=== PATIENT | female | born 1990 | race Hispanic/Latino ===

== ENCOUNTER 2018-05-08 20:45 | Emergency (ER) | payer SELFPAY ==
[2018-05-08 21:40] LABS: Urine Blood NEGATIVE (NEG); Urine Glucose NEGATIVE (NEG); Urine Protein NEGATIVE (NEG); Urine pH 7.5 (5.0-7.0)
[2018-05-08 21:41] LABS: Absolute Lymphocytes (CBC) 1.8 K/uL (0.7-4.9); Absolute Monocytes 0.8 K/uL (0.1-1.3); Absolute Neutrophil 14.4 K/uL (1.8-8.0); Basophils % 0.2 % (0-1.3); Eosinophils % 0.4 % (0-4.4); Hematocrit 37.1 % (36.0-45.0); Lymphocytes % 10.5 % (15.3-44.8); MCH 31.2 pg (27.0-35.0); MCV 91.9 fL (80-100); MPV 8.3 fL (7.6-11.3); Monocytes % 4.6 % (3.3-12.3); RBC Red Blood Cell Count 4.03 M/uL (3.86-4.86)
[2018-05-08] MEDS ORDERED: KETOROLAC 30 MG/ML INJ ONE (21:49)
[2018-05-08] MEDS ORDERED: ONDANSETRON 4 MG/2 ML VIAL ONE (21:49)
[2018-05-08 22:03] LABS: ALT/SGPT 18 U/L (12-78); AST/SGOT 12 U/L (15-37); Albumin 3.4 g/dL (3.4-5.0); Alkaline Phosphatase 100 U/L (45-117); Amylase Level 42 U/L (25-115); BUN Blood Urea Nitrogen 7 mg/dL (7-18); Bicarbonate 27 mmol/L (21-32); Bilirubin Direct < 0.1 mg/dL (0-0.2); Bilirubin Total 0.4 mg/dL (0.2-1.0); Glucose Level 104 mg/dL (74-106); Lipase 84 U/L (73-393); Potassium 3.2 mmol/L (3.5-5.1); Protein, Total 7.3 g/dL (6.4-8.2); Sodium Level 135 mmol/L (136-145)
[2018-05-09 00:48] LABS: Urine Bacteria <20 /HPF (<20); Urine Culture Reflex Order NOT NEEDED; Urine RBC <5 /HPF (NONE SEEN)
[2018-05-09] MEDS ORDERED: DICYCLOMINE HCL 10 MG CAP ONE (01:20)
[2018-05-09] MEDS ORDERED: CIPROFLOXACIN HCL 500 MG TAB ONE (01:45)
[2018-05-09] MEDS ORDERED: METRONIDAZOLE 500mg IVPB 500 MG/100 ML BAG IV ONE (01:46)
[2018-05-09] MEDS ORDERED: MORPHINE 4 MG/ML SYR ONE (01:46)
--- NOTE | 2018-05-09 01:56 | ER ---
Nurse's Notes [facility] Name: Yaneli Ray Age: 27 yrs Sex: Female : 1990 Arrival Date: 05/08/2018 Time: 20:46 Bed 16 Private MD: Diagnosis: Lower abdominal pain, unspecified Presentation: 05/08 20:49 Presenting complaint: Patient states: that she is having lower abd pain but denies any fc nausea, vomiting or diarrhea. Transition of care: patient was not received from another setting of care. Onset of symptoms was May 08, 2018. Risk Assessment: Do you want to hurt yourself or someone else? Patient reports no desire to harm self or others. Initial Sepsis Screen: Does the patient meet any 2 criteria? HR > 90 bpm. Yes Does the patient have a suspected source of infection? No. Patient's initial sepsis screen is negative. Care prior to arrival: Medication(s) given: Nyquil at 2000. 20:49 Method Of Arrival: Ambulatory 20:49 Acuity: JOSHUA 3 Triage Assessment: 20:51 General: Appears comfortable, Behavior is calm, cooperative, appropriate for age. Pain: fc Complains of pain in right lower quadrant and left lower quadrant Pain currently is 10 out of 10 on a pain scale. Quality of pain is described as aching, crampy, Pain began today Is continuous. EENT: No deficits noted. Neuro: Level of Consciousness is awake, alert, obeys commands, Oriented to person, place, time, situation. Cardiovascular: No deficits noted. Respiratory: No deficits noted. GI: Reports lower abdominal pain. : No deficits noted. Derm: Skin is pink, warm \T\ dry. Musculoskeletal: Circulation, motion, and sensation intact. Capillary refill < 3 seconds, Range of motion: intact in all extremities. 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 - Social history:: Smoking status: Patient uses tobacco products, smokes one-half pack cigarettes per day. - Ebola Screening: : Patient negative for fever greater than or equal to 101.5 degrees Fahrenheit, and additional compatible Ebola Virus Disease symptoms Patient denies exposure to infectious person Patient denies travel to an Ebola-affected area in the 21 days before illness onset. Screenin:11 Abuse screen: Denies threats or abuse. Denies injuries from another. Nutritional ao screening: No deficits noted. Tuberculosis screening: No symptoms or risk factors identified. Fall Risk None identified. Assessment: 21:29 General: Appears in no apparent distress. comfortable, Behavior is calm, cooperative, ao appropriate for age. Pain: Complains of pain in abdomen Pain currently is 10 out of 10 on a pain scale. Neuro: Level of Consciousness is awake, alert, obeys commands, Oriented to person, place, time, situation, Appropriate for age Moves all extremities. Speech is normal, Facial symmetry appears normal, Pupils are PERRLA. Cardiovascular: Heart tones S1 S2 Capillary refill < 3 seconds Patient's skin is warm and dry. Respiratory: Airway is patent Respiratory effort is even, unlabored, Respiratory pattern is regular, symmetrical, Breath sounds are clear bilaterally. GI: Abdomen is flat, Bowel sounds present X 4 quads. Abd is soft and non tender Abd is soft. : No signs and/or symptoms were reported regarding the genitourinary system. EENT: No signs and/or symptoms were reported regarding the EENT system. Derm: Skin is intact, Skin is pink, warm \T\ dry. Skin temperature is warm. Musculoskeletal: Circulation, motion, and sensation intact. Range of motion: intact in all extremities. 22:03 Reassessment: Patient appears in no apparent distress at this time. Patient and/or ao family updated on plan of care and expected duration. Pain level reassessed. Patient is alert, oriented x 3, equal unlabored respirations, skin warm/dry/pink. 23:00 Reassessment: Patient appears in no apparent distress at this time. Patient and/or ao family updated on plan of care and expected duration. Pain level reassessed. Patient is alert, oriented x 3, equal unlabored respirations, skin warm/dry/pink. 23:55 Reassessment: Patient appears in no apparent distress at this time. Patient and/or ao family updated on plan of care and expected duration. Pain level reassessed. Patient is alert, oriented x 3, equal unlabored respirations, skin warm/dry/pink. Waiting on Ct results Patient states feeling better. 05/09 00:53 Reassessment: Patient appears in no apparent distress at this time. Patient and/or ao family updated on plan of care and expected duration. Pain level reassessed. Patient is alert, oriented x 3, equal unlabored respirations, skin warm/dry/pink. Waiting on dispo. 01:56 Reassessment: Patient appears in no apparent distress at this time. Patient and/or ao family updated on plan of care and expected duration. Pain level reassessed. Patient is alert, oriented x 3, equal unlabored respirations, skin warm/dry/pink. Patient medicated with morphine. 02:06 Reassessment: Patient to be discharge after Flagyl is complete. ao Vital Signs: 05/08 20:53 BP 122 / 76; Pulse 115; Resp 18; Temp 99.1(O); Pulse Ox 99% on R/A; Weight 68.04 kg fc (R); Height 5 ft. 1 in. (154.94 cm) (R); Pain 10/10; 22:03 BP 109 / 68; Pulse 99; Resp 20; Pulse Ox 100% on R/A; ao 23:00 BP 108 / 66; Pulse 84; Resp 18; Pulse Ox 100% ; ao 23:55 BP 105 / 64; Pulse 87; Resp 16; Pulse Ox 98% on R/A; ao 05/09 00:53 BP 109 / 56; Pulse 84; Resp 16; Pulse Ox 96% ; ao 01:56 BP 116 / 61; Pulse 87; Resp 14; Pulse Ox 98% on R/A; ao 05/08 20:53 Body Mass Index 28.34 (68.04 kg, 154.94 cm) ED Course: 05/08 20:46 Patient arrived in ED. am2 20:51 Triage completed. fc 20:53 Arm band placed on Patient placed in an exam room, on a stretcher. fc 20:57 Ruel Brar PA is PHCP. cp 20:57 Sree Loera MD is Attending Physician. cp 21:18 Rodolfo Fuller, RN is Primary Nurse. ao 22:11 Patient has correct armband on for positive identification. Pulse ox on. NIBP on. ao 23:00 Inserted saline lock: 20 gauge in left antecubital area, using aseptic technique. Blood ao collected. 23:46 CT Abd/Pelvis - W/Contrast: no oral contrast In Process Unspecified. EDMS 05/09 03:00 No provider procedures requiring assistance completed. ao 03:01 IV discontinued, intact, bleeding controlled, No redness/swelling at site. Pressure ao dressing applied. Administered Medications: 05/08 21:52 Drug: TORadol 30 mg Route: IVP; Site: left antecubital; ao 05/09 01:22 Follow up: Response: No adverse reaction ao 05/08 21:52 Drug: Zofran 4 mg Route: IVP; Site: left antecubital; ao 05/09 01:22 Follow up: Response: No adverse reaction ao 01:21 Drug: Bentyl 20 mg Route: PO; ao 02:00 Follow up: Response: No adverse reaction ao 01:52 Drug: metroNIDAZOLE 500 mg Volume: 100 ml; Route: IVPB; Infused Over: 30 mins; Site: ao left antecubital; 05:20 Follow up: IV Status: Completed infusion; IV Intake: 100ml ao 01:52 Drug: morphine 2 mg Route: IVP; Site: left antecubital; ao 03:00 Follow up: Response: No adverse reaction ao 01:53 Drug: Ciprofloxacin 500 mg Route: PO; ao 02:00 Follow up: Response: No adverse reaction ao Intake: 05:20 IV: 100ml; Total: 100ml. ao Outcome: 01:56 Discharge ordered by MD. cp 03:01 Discharged to home ambulatory. ao 03:01 Condition: stable 03:01 Discharge instructions given to patient, Instructed on discharge instructions, follow up and referral plans. Demonstrated understanding of instructions, follow-up care, medications, Prescriptions given X 3. 03:01 Patient left the ED. ao Signatures: Dispatcher [employer] EDMS Christina Larose RN RN fc Page, Corey, PA PA cp Ortiz, Alex, RN RN Dinah Otero am2 Corrections: (The following items were deleted from the chart) 05/08 20:54 20:49 Initial Sepsis Screen: Does the patient meet any 2 criteria? No. Patient's fc initial sepsis screen is negative. Does the patient have a suspected source of infection? No. Patient's initial sepsis screen is negative. fc
--- NOTE | 2018-05-09 01:56 | EDPHYS ---
Physician Documentation [facility] Name: Yaneli Ray Age: 27 yrs Sex: Female : 1990 Arrival Date: 05/08/2018 Time: 20:46 Bed 16 Private MD: ED Physician Sree Loera HPI: 05/08 21:15 This 27 yrs old Female presents to ER via Ambulatory with complaints of cp Abdominal Pain - Lower, Chills. 21:15 The patient presents with abdominal pain in the lower abdomen. cp 21:15 Onset: The symptoms/episode began/occurred today. The symptoms do not radiate. cp Associated signs and symptoms: Pertinent positives: diarrhea 3 days ago, Pertinent negatives: blood in stools, constipation, fever, vomiting. 21:15 The symptoms are described as constant. Modifying factors: the symptoms are aggravated cp by pressure. 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 - Social history:: Smoking status: Patient uses tobacco products, smokes one-half pack cigarettes per day. - Ebola Screening: : Patient negative for fever greater than or equal to 101.5 degrees Fahrenheit, and additional compatible Ebola Virus Disease symptoms Patient denies exposure to infectious person Patient denies travel to an Ebola-affected area in the 21 days before illness onset. ROS: 21:20 Constitutional: Positive for chills, Negative for body aches, fever, poor PO intake. cp 21:20 Eyes: Negative for injury, pain, redness, and discharge. cp 21:20 ENT: Negative for ear pain, sore throat, difficulty swallowing, difficulty handling secretions. 21:20 Cardiovascular: Negative for chest pain, palpitations. 21:20 Respiratory: Negative for cough, shortness of breath, wheezing. 21:20 Abdomen/GI: Positive for abdominal pain, Negative for vomiting, constipation, active diarrhea. 21:20 : Positive for vaginal bleeding, Negative for urinary symptoms. 21:20 Skin: Negative for cellulitis, rash. 21:20 Neuro: Negative for dizziness, headache, weakness. 21:20 All other systems are negative. Exam: 21:25 Constitutional: The patient appears in no acute distress, alert, awake, non-toxic, well cp developed, well nourished, uncomfortable. 21:25 Head/Face: Normocephalic, atraumatic. cp 21:25 Eyes: Periorbital structures: appear normal, Conjunctiva: normal, no exudate, no injection, Sclera: no appreciated abnormality, Lids and lashes: appear normal, bilaterally. 21:25 ENT: External ear(s): are unremarkable, Ear canal(s): are normal, clear, TM's: bulging, is not appreciated, bilaterally, dullness, bilaterally, erythema, is not appreciated, bilaterally, Nose: is normal, Mouth: Lips: moist, Oral mucosa: pink and intact, moist, Posterior pharynx: is normal, airway is patent, no erythema, no exudate, Voice: is normal. 21:25 Neck: ROM/movement: is normal, is supple, without pain, no range of motions limitations, no nuchal rigidity. 21:25 Chest/axilla: Inspection: normal, Palpation: is normal, no crepitus, no tenderness. 21:25 Cardiovascular: Rate: tachycardic, Rhythm: regular. 21:25 Respiratory: the patient does not display signs of respiratory distress, Respirations: normal, no use of accessory muscles, no retractions, no splinting, no tachypnea, labored breathing, is not present, Breath sounds: are clear throughout, no decreased breath sounds, no stridor, no wheezing. 21:25 Abdomen/GI: Inspection: abdomen appears normal, Bowel sounds: active, all quadrants, Palpation: soft, in all quadrants, moderate abdominal tenderness, in the right lower quadrant and left lower quadrant, rebound tenderness, is not appreciated, voluntary guarding, is not appreciated, involuntary guarding, is not appreciated. 21:25 Back: pain, is absent, ROM is normal. 21:25 Skin: cellulitis, is not appreciated, no rash present. Vital Signs: 20:53 BP 122 / 76; Pulse 115; Resp 18; Temp 99.1(O); Pulse Ox 99% on R/A; Weight 68.04 kg fc (R); Height 5 ft. 1 in. (154.94 cm) (R); Pain 10/10; 22:03 BP 109 / 68; Pulse 99; Resp 20; Pulse Ox 100% on R/A; ao 23:00 BP 108 / 66; Pulse 84; Resp 18; Pulse Ox 100% ; ao 23:55 BP 105 / 64; Pulse 87; Resp 16; Pulse Ox 98% on R/A; ao 05/09 00:53 BP 109 / 56; Pulse 84; Resp 16; Pulse Ox 96% ; ao 01:56 BP 116 / 61; Pulse 87; Resp 14; Pulse Ox 98% on R/A; ao 05/08 20:53 Body Mass Index 28.34 (68.04 kg, 154.94 cm) fc MDM: 05/08 20:57 Patient medically screened. cp 22:00 Differential diagnosis: bowel obstruction, diverticulitis, gastritis, non-specific abd cp pain, Peritonitis, Pelvic Inflammatory Disease, Ureterolithiasis, urinary tract infection. 05/09 01:54 Data reviewed: vital signs, nurses notes, lab test result(s), radiologic studies, CT cp scan, and as a result, I will discharge patient. 01:55 Counseling: I had a detailed discussion with the patient and/or guardian regarding: the cp historical points, exam findings, and any diagnostic results supporting the discharge/admit diagnosis, lab results, radiology results, to return to the emergency department if symptoms worsen or persist or if there are any questions or concerns that arise at home. Response to treatment: the patient's symptoms have markedly improved after treatment, VSS. Pain improved. Patient tolerating po fluids, and as a result, I will discharge patient. 05/08 21:11 Order name: Amylase, Serum; Complete Time: 23:10 cp 05/08 21:11 Order name: Basic Metabolic Panel; Complete Time: 23:10 cp 05/09 00:44 Interpretation: Normal except: NA 135; K 3.2; GFR 87; CA 8.4. cp 05/08 21:11 Order name: CBC with Diff; Complete Time: 23:10 cp 05/09 00:44 Interpretation: Normal except: WBC 17.1; TRAVIS% 84.3; LYM% 10.5; NEUT A 14.4. cp 05/08 21:11 Order name: Creatinine for Radiology; Complete Time: 23:10 cp 05/08 21:11 Order name: Hepatic Function; Complete Time: 23:10 cp 05/09 00:44 Interpretation: Normal except: AST 12; GLOB 3.9; A/G 0.9. cp 05/08 21:11 Order name: Lipase; Complete Time: 23:10 cp 05/08 21:11 Order name: Urine Microscopic Only; Complete Time: 01:06 cp 05/09 01:06 Interpretation: Normal except: SQEPI 10-20. cp 05/08 21:12 Order name: Urine Dipstick--Ancillary (enter results) eb 05/08 21:12 Order name: Urine --Ancillary (enter results) eb 05/08 21:13 Order name: Urine Dipstick-Ancillary; Complete Time: 23:10 EDMS 05/09 00:44 Interpretation: Normal except: UPH 7.5. cp 05/08 21:13 Order name: Urine --Ancillary; Complete Time: 23:10 EDMS 05/08 23:10 Order name: CT Abd/Pelvis - W/Contrast: no oral contrast cp 05/08 21:11 Order name: Urine Test (obtain specimen); Complete Time: 21:24 cp 05/08 21:11 Order name: IV Saline Lock; Complete Time: 21:25 cp 05/08 21:11 Order name: Labs collected and sent; Complete Time: 21:25 cp 05/08 21:11 Order name: Urine Dipstick-Ancillary (obtain specimen); Complete Time: 21:24 cp 05/09 01:16 Order name: PO challenge; Complete Time: 01:20 cp Administered Medications: 05/08 21:52 Drug: TORadol 30 mg Route: IVP; Site: left antecubital; ao 05/09 01:22 Follow up: Response: No adverse reaction ao 05/08 21:52 Drug: Zofran 4 mg Route: IVP; Site: left antecubital; ao 05/09 01:22 Follow up: Response: No adverse reaction ao 01:21 Drug: Bentyl 20 mg Route: PO; ao 02:00 Follow up: Response: No adverse reaction ao 01:52 Drug: metroNIDAZOLE 500 mg Volume: 100 ml; Route: IVPB; Infused Over: 30 mins; Site: ao left antecubital; 05:20 Follow up: IV Status: Completed infusion; IV Intake: 100ml ao 01:52 Drug: morphine 2 mg Route: IVP; Site: left antecubital; ao 03:00 Follow up: Response: No adverse reaction ao 01:53 Drug: Ciprofloxacin 500 mg Route: PO; ao 02:00 Follow up: Response: No adverse reaction ao Disposition: 05/09/18 01:56 Discharged to Home. Impression: Lower abdominal pain, unspecified. - Condition is Stable. - Discharge Instructions: Abdominal Pain, Adult. - Prescriptions for Bentyl 20 mg Oral Tablet - take 1 tablet by ORAL route every 6 hours As needed; 30 tablet. Zofran 4 mg Oral Tablet - take 1 tablet by ORAL route every 12 hours As needed; 20 tablet. Cipro 500 mg Oral Tablet - take 1 tablet by ORAL route every 12 hours for 10 days; 20 tablet. Metronidazole 500 mg Oral Tablet - take 1 tablet by ORAL route every 8 hours; 30 tablet. - Medication Reconciliation Form, Thank You Letter, Antibiotic Education, Prescription Opioid Use, Work release form form. - Follow up: Private Physician; When: 1 - 2 days; Reason: Recheck today's complaints. - Problem is new. - Symptoms have improved. Addendum: 05/11/2018 12:40 Co-signature as Attending Physician, Sree Loera MD Available for consultation at p s1 all times. . Signatures: Dispatcher [employer] EDMS Christina Larose RN RN Ruel Martínez PA PA cp Ortiz, Alex, RN RN ao Singer, Phillip, MD MD ps1 Corrections: (The following items were deleted from the chart) 05/09 00:44 00:43 Normal except: NA 135; K 3.2; GFR 87. cp cp 03:01 01:56 05/09/2018 01:56 Discharged to Home. Impression: Lower abdominal pain, ao unspecified. Condition is Stable. Forms are Medication Reconciliation Form, Thank You Letter, Antibiotic Education, Prescription Opioid Use. Follow up: Private Physician; When: 1 - 2 days; Reason: Recheck today's complaints. Problem is new. Symptoms have improved. cp
--- NOTE | 2018-05-09 08:10 | RAD REPORT ---
EXAM DESCRIPTION: CT - Abdomen Pelvis W Contrast - 05/09/2018 5:33 am CLINICAL HISTORY: Abdominal pain/lower abdominal pain. COMPARISON: 2012 TECHNIQUE: Computed axial tomography of the abdomen pelvis was obtained. 100 cc Isovue-300 was admin istered intravenously. Oral contrast was not requested which limits evaluation of bowel. A preliminar y was generated by [employer] and reviewed prior to this dictation All CT scans are performed using dose optimization technique as appropriate and may include automated exposure control or mA/KV adjustment according to patient size. FINDINGS: The liver, spleen, pancreas, adrenal and kidneys appear unremarkable. There is no evidence of diverticulitis. The gallbladder and appendix have been removed. Fluid is present within nondilated small bowel. A tiny umbilical hernia is seen. IMPRESSION: Fluid within nondilated small bowel may indicate an enteritis
[2018-05-09 10:37] VITALS: TEMP 99.1
[2018-05-09 10:43] VITALS: BP 116/61; O2SAT 98
== END 2018-05-09 03:01 | disposition home or self-care (01) ==
LOC: ER 20:45
DX: R10.30 Lower abdominal pain, unspecified (principal); F17.210 Nicotine dependence, cigarettes, uncomplicated
CPT/HCPCS: 36415; 74177; 80048; 80076; 81003; 81015; 81025; 82150; 83690; 85025; 96365; 96366; 96375; 99284; J2405; Q9967

== ENCOUNTER 2020-02-17 04:24 | Inpatient (IN) | payer OTHER ==
[~2020-02-17 04:24] MED LIST: BUTORPHANOL 1 MG/ML INJ IV PRN; CARBOPROST TROME 250 MCG/ML IM PRN; METHYLERGONOVINE 0.2MG/ML AMP IM PRN; OXYTOCIN/LR 20 UNIT/1,000 ML BAG IV SCH; PROMETHAZINE INJ 25 MG/ML AMP IM PRN; Ringers Lactate 1,000 ML IV PRN; Ringers Lactate 1,000 ML IV SCH
[2020-02-17 05:17] LABS: Urine Appearance CLEAR; Urine Bilirubin NEGATIVE (NEG); Urine Blood NEGATIVE (NEG); Urine Color YELLOW; Urine Glucose NEGATIVE (NEG); Urine Protein NEGATIVE (NEG); Urine Specific Gravity 1.015 (1.005-1.030); Urine Urobilinogen 0.2 mg/dL (0.2-1.0); Urine pH 7.5 (5.0-7.0)
[2020-02-17 05:20] LABS: Absolute Lymphocytes (CBC) 3.9 K/uL (0.7-4.9); Basophils % 0.3 % (0-1.3); Hematocrit 31.4 % (36.0-45.0); Lymphocytes % 29.5 % (15.3-44.8); RBC Red Blood Cell Count 3.47 M/uL (3.86-4.86)
[2020-02-17 05:22] LABS: Urine Microscopic Reflex ORDER UMIC
[2020-02-17 05:27] VITALS: BMI 32.5
[2020-02-17 05:45] LABS: Urine Bacteria <20 /HPF (<20); Urine Culture Reflex Order REFLEXED; Urine RBC <5 /HPF (NONE SEEN)
[2020-02-17] MEDS ORDERED: FENTANYL CITR 100 MCG/2 ML ONE (06:42)
[2020-02-17] MEDS ORDERED: BUPIVACAINE 0.25% PF 30 ML VIAL ONE (06:42)
[2020-02-17] MEDS ORDERED: FENTANYL/BUPIVACAINE/NS/PF 200 MCG/100 ML BAG EP ONE (06:43)
--- NOTE | 2020-02-17 07:24 | PREOPHP ---
Date of Admission: 02/17/2020 This is a 29-year-old, 4, para 3, 39 weeks, 1 day. She is Rh positive, immune to Rubella. N egative beta strep screen. Is 4 cm, 80% effaced, vertex, -1 station to 0 station. Rupture of membra kali, clear fluid. Anticipate more rapid progress. Full labor talk given. YAZMIN/EVAN Voice ID: [id number]
[2020-02-17] MEDS ORDERED: INFLUENZA VACCINE (for 3y+) 0.5 ML DOSE IMVAC ONE (08:00)
[2020-02-17] MEDS ORDERED: ACETAMINOPHEN 500 MG TAB PO PRN (09:13)
[2020-02-17] MEDS ORDERED: IBUPROFEN 200 MG TAB PO PRN (09:13)
[2020-02-17] MEDS ORDERED: DOCUSATE NA/SENNA CONC 1 TAB PO PRN (09:13)
[2020-02-17] MEDS ORDERED: BISACODYL 10 MG RECTAL SUPP RECT PRN (09:13)
[2020-02-17] MEDS ORDERED: DIPHENHYDRAMINE 25 MG TAB/CAP PO PRN (09:13)
[2020-02-17] MEDS ORDERED: Oxycodone HCl/Acetaminophen 1 TAB TAB PO PRN (09:13)
--- NOTE | 2020-02-17 09:36 | OP ---
Surgeon: Gianluca Smith MD Summary: This is a 29-year-old, 4, para 3, 39 weeks 1 day. Rupture of membranes, at approxi mately 4 cm. Epidural anesthesia was established. Thereafter, second stage of 20 to 25 minutes. Sp ontaneous vaginal delivery of an estimated 7-pound male infant, Apgars 9 and 10. No episiotomy. No laceration. Patel delivery of the placenta, inspected and noted to be intact and normal. Less than 300 mL blood loss. Rh positive, immune to Rubella. Negative beta strep screen. Tolerated all proc edures well. Final Diagnoses: 1.Term intrauterine . 2.Vaginal delivery. 3.Epidural anesthesia. YAZMIN/EVAN Voice ID: [id number] Report ID: [id number]
[2020-02-17] MEDS ORDERED: IBUPROFEN 600 MG TAB PO PRN (10:00)
[2020-02-17] MEDS ORDERED: OXYTOCIN/LR 20 UNIT/1,000 ML BAG IV SCH (10:00)
[2020-02-17] MEDS: Oxycodone HCl/Acetaminophen 1 TAB TAB PO PRN (19:30)
[2020-02-17 23:09] LABS: RPR (Rapid Plasma Reagin) NON-REACT (NON-REACT)
[2020-02-18] MEDS: Oxycodone HCl/Acetaminophen 1 TAB TAB PO PRN (07:08)
[2020-02-18 07:31] VITALS: BP 119/62; TEMP 97
[2020-02-18] MEDS ORDERED: Tdap (Diph,Pertuss(Acell),Tet Vac) 0.5 ML SYR IMVAC ONE ×2 (08:20→08:29)
[2020-02-18] MEDS ORDERED: INFLUENZA VACCINE (for 3y+) 0.5 ML DOSE IMVAC ONE (08:29)
--- NOTE | 2020-02-18 09:12 | DS ---
This is a 29-year-old 4, para 3, 39 weeks, delivered an estimated 7-pound plus male . Apgars 9 and 9. No episiotomy. No lacerations. Epidural anesthesia. Delivery of the placenta, whi ch was inspected and noted to be intact and normal. Less than 300 mL blood loss. Rh positive, immun e to Rubella. Negative beta strep screen. ; afebrile, ambulating and voiding. Lochia is normal. No post epidural problems. She is scheduled to get her Tdap and flu shot before she leaves the hospital. Request tramadol, we will give her 10 to 15 tablets. She knows this does go through t he breast-milk. Full discussion. Cannon instructions also given. Final Diagnoses: Term intrauterine 39 weeks. Vaginal delivery. Epidural anesthesia. Tda p and flu shots offered. YAZMIN/EVAN Voice ID: [id number] Report ID: [id number]
[2020-02-19 02:25] LABS: HBsAG Nonreactive (Nonreactive)
== END 2020-02-18 10:47 | disposition home or self-care (01) | DRG 807 ==
LOC: 2ND-WC 04:24
PROVIDERS: ADMIT Specialist; ATTEND Specialist
PROC: 10E0XZZ Delivery of Products of Conception, External Approach (ICD-10-PCS; principal; 2020-02-17)
PROC: 10907ZC Drainage of Amniotic Fluid, Therapeutic from Products of Conception, Via Natural or Artificial Opening (ICD-10-PCS; 2020-02-17)
DX: O80 Encounter for full-term uncomplicated delivery (principal); Z37.0 Single live birth; Z3A.39 39 weeks gestation of pregnancy
CPT/HCPCS: 36415; 81003; 81015; 85025; 86592; 86850; 86900; 86901; 87086; 87088; 87340; 90471; 90715; J2210; J2590; J3010; J7120; Q2035

== ENCOUNTER 2021-03-19 07:12 | Inpatient (IN) | payer OTHER ==
[2021-03-19] MEDS ORDERED: METHYLERGONOVINE 0.2MG/ML AMP IM ONE ×2 (07:58→17:15)
[2021-03-19] MEDS ORDERED: LIDOCAINE 1% MPF 30 ML VIAL ONE ×2 (07:58→17:14)
[2021-03-19] MEDS ORDERED: PENICILLIN 5 MU in NA CHLORIDE 0.9% 100 ML IV ONE (08:06)
[2021-03-19] MEDS ORDERED: Ringers Lactate 1,000 ML IV PRN (08:06)
[2021-03-19] MEDS ORDERED: METHYLERGONOVINE 0.2MG/ML AMP IM PRN (08:06)
[2021-03-19] MEDS ORDERED: CARBOPROST TROME 250 MCG/ML IM PRN (08:06)
[2021-03-19 08:38] LABS: Absolute Lymphocytes (CBC) 4.3 K/uL (0.7-4.9); Basophils % 0.4 % (0-1.3); Hematocrit 34.4 % (36.0-45.0); Lymphocytes % 26.7 % (15.3-44.8); MPV 12.8 fL (7.6-11.3); RBC Red Blood Cell Count 3.94 M/uL (3.86-4.86)
[2021-03-19 08:46] VITALS: BMI 35.6
[2021-03-19] MEDS ORDERED: Ringers Lactate 1,000 ML IV SCH (09:00)
[2021-03-19] MEDS ORDERED: Oxycodone HCl/Acetaminophen 1 TAB TAB PO PRN (09:17)
[2021-03-19] MEDS ORDERED: OXYTOCIN/LR 20 UNIT/1,000 ML BAG IV ONE ×2 (09:40→17:16)
--- NOTE | 2021-03-19 11:29 | PREOPHP ---
Date of Admission: 03/19/2021 A 30-year-old 5, para 4, scheduled for induction on Monday, came in an active advanced labor , 9 cm on admission. Experienced spontaneous rupture of membranes, was started on penicillin prophyl axis as she was beta strep positive. Probably had full dose about 15 minutes or so prior to delivery . Delivered rapidly of an estimated 7 pounds male infant. Apgars 9 and 9. Mild shoulder dystocia. Flexion of the legs and suprapubic pressure affected easy delivery. No episiotomy. No lacerations. Maureen delivery of the placenta, which inspected and noted to be intact and normal. 300 cc or less blood loss. The patient tolerated all procedures well. Final Diagnoses: 1.Term intrauterine . 2.Spontaneous vaginal delivery. 3.Beta strep positive. Prophylaxis administered less than 1 hour prior to delivery. Full talk given. As I will be going out of town, Dr. Edwards is asphalt roller person and will take ove r from this point. The patient aware of this. YAZMIN/EVAN Voice ID: [id number]
[2021-03-19] MEDS: IBUPROFEN 600 MG TAB PO PRN ×2 (12:00→19:46)
[2021-03-19] MEDS ORDERED: CARBOPROST TROME 250 MCG/ML IM ONE (17:15)
[2021-03-19] MEDS: Oxycodone HCl/Acetaminophen 1 TAB TAB PO PRN (19:46)
[2021-03-19 21:40] LABS: RPR (Rapid Plasma Reagin) NON-REACT (NON-REACT)
[2021-03-20] MEDS: IBUPROFEN 600 MG TAB PO PRN (07:21)
[2021-03-20] MEDS: Oxycodone HCl/Acetaminophen 1 TAB TAB PO PRN (07:21)
[2021-03-20] MEDS ORDERED: Tdap (Diph,Pertuss(Acell),Tet Vac) 0.5 ML SYR IMVAC ONE (09:05)
[2021-03-20 11:48] VITALS: BP 113/69; TEMP 97.7
[2021-03-22 11:43] LABS: HBsAG Nonreactive (Nonreactive)
--- NOTE | 2021-03-23 02:54 | DS ---
Date of Discharge: 03/20/2021 Discharge Diagnoses: 1.Term , delivered. 2.Group B Strep carrier. Hospital Course: The patient is a 30-year-old 5, para 4 who presented to Labor and Delivery in active labor. She was admitted and she received 1 dose of penicillin G for GBS prophylaxis. She delivered precipitously. Dr. Smith was available for delivery. Her course of uncomplicat ed. At the time of discharge, she was ambulating, voiding, tolerating p.o. Pain was minimal. Vagin al bleeding was minimal. She was afebrile and her vital signs were stable. Diet: Regular. Followup: [address] Smith. The patient already has appointment. Warnings: Temperature greater than 100.4, increasing pain, heavy vaginal bleeding, signs and symptom s of depression. Prescription: Activity as tolerated. Pelvic rest for 6 weeks. CHAYO/MODL Voice ID: [id number] Report ID: [id number]
== END 2021-03-20 12:20 | disposition home or self-care (01) | DRG 807 ==
LOC: L&D 07:12 → 2ND-WC 07:31
PROVIDERS: ADMIT Obstetrics & Gynecology; ATTEND Obstetrics & Gynecology
PROC: 10E0XZZ Delivery of Products of Conception, External Approach (ICD-10-PCS; principal; 2021-03-19)
DX: O99.824 Streptococcus B carrier state complicating childbirth (principal); Z37.0 Single live birth; Z3A.39 39 weeks gestation of pregnancy; O66.0 Obstructed labor due to shoulder dystocia; Z23 Encounter for immunization
CPT/HCPCS: 36415; 85025; 86592; 86901; 87340; 90715; J2210; J2590; J7120; U0003

== ENCOUNTER 2022-06-22 03:37 | Inpatient (IN) | payer OTHER ==
--- OUTSIDE RECORDS SUMMARY | 2022-06-22 04:00 | XMS REPORT | Continuity of Care Document ---
:1990 Author Organization [facility] t Address [address] [place] [address] Dr. Cano [address] [place] [id number] Care Team Providers Name Role Phone Unavailable Unavailable Unavailable Problems This patient has no known problems. Allergies, Adverse Reactions, Alerts This patient has no known allergies or adverse reactions. Medications This patient has no known medications. Procedures This patient has no known procedures. Results This patient has no known results.
[2022-06-22] MEDS ORDERED: CARBOPROST TROME 250 MCG/ML IM PRN (04:25)
[2022-06-22] MEDS ORDERED: Ringers Lactate 1,000 ML IV PRN (04:25)
[2022-06-22] MEDS ORDERED: METHYLERGONOVINE 0.2MG/ML AMP IM PRN (04:25)
[2022-06-22] MEDS ORDERED: PROMETHAZINE INJ 25 MG/ML AMP IM PRN (04:25)
[2022-06-22] MEDS ORDERED: BUTORPHANOL 1 MG/ML INJ IV PRN (04:25)
[2022-06-22] MEDS ORDERED: METHYLERGONOVINE 0.2MG/ML AMP IM ONE (04:26)
[2022-06-22] MEDS ORDERED: CARBOPROST TROME 250 MCG/ML IM ONE (04:27)
[2022-06-22] MEDS ORDERED: OXYTOCIN/LR 20 UNIT/1,000 ML BAG IV ONE (04:27)
[2022-06-22] MEDS ORDERED: 0.2% ROPIVACAINE (200 MG/100 ML) BAG EP ONE (04:32)
[2022-06-22] MEDS ORDERED: ROPIVACAINE HCL 0.2% 20ML AMP EP ONE (04:33)
[2022-06-22] MEDS ORDERED: FENTANYL CITR 100 MCG/2 ML IV ONE (04:34)
[2022-06-22 04:40] LABS: Absolute Lymphocytes (CBC) 3.4 K/uL (0.7-4.9); Lymphocytes % 24.4 % (15.3-44.8); MCV 89.4 fL (80-100); MPV 11.7 fL (7.6-11.3)
[2022-06-22 04:44] LABS: Specific Gravity 1.015 (1.005-1.030); Urine Bilirubin Negative (Negative); Urine Blood 3+ (Negative); Urine Clarity Clear (Clear); Urine Color Yellow (Yellow); Urine Glucose Negative (Negative); Urine Protein Negative (Negative); Urine Urobilinogen 0.2 mg/dL (0.2-1.0); Urine pH 7.5 (5.0-7.0)
[2022-06-22] MEDS ORDERED: OXYTOCIN/LR 20 UNIT/1,000 ML BAG IV SCH ×2 (05:00→08:00)
[2022-06-22] MEDS ORDERED: Ringers Lactate 1,000 ML IV SCH (05:00)
[2022-06-22 05:22] LABS: Urine Bacteria 20-50 /HPF (<20); Urine RBC <5 /HPF (None Seen)
[2022-06-22 06:21] VITALS: BMI 34.0
[2022-06-22] MEDS ORDERED: DOCUSATE NA/SENNA CONC 1 TAB PO PRN ×2 (07:24→20:38)
[2022-06-22] MEDS ORDERED: DIPHENHYDRAMINE 25 MG TAB/CAP PO PRN (07:24)
[2022-06-22] MEDS ORDERED: BISACODYL 10 MG RECTAL SUPP RC PRN (07:24)
[2022-06-22] MEDS ORDERED: ACETAMINOPHEN 500 MG TAB PO PRN (07:24)
[2022-06-22] MEDS ORDERED: Oxycodone HCl/Acetaminophen 1 TAB TAB PO PRN ×2 (07:24)
--- NOTE | 2022-06-22 09:12 | PREOPHP ---
Date of Admission: 06/22/2022 History: This is a 31-year-old 6, para 5 at 38 weeks 3 days, came in active labor, noted to be 5 cm on admission, vertex, but baby still fairly high, opal every 2-4 minutes. She has now progressed to 6 cm. The epidural has been requested and Anesthesia is on their way. FHT is normal. Vital signs are all normal. Family History: Mother with hypertension. The grandmother with cancer, site undetermined. Past Surgical History: The patient has had appendectomy and gallbladder surgery. Allergies: SHE IS NOT ALLERGIC TO ANYTHING. Social History: She does not smoke. Physical Examination: HEENT: Clear. Pupils equal, round, reactive to light and accommodation. Conjunctivae well perfused . No oral, lingual, or buccal lesions. Chest and Lungs: Clear. Heart: Without murmurs, thrills, heaves, or rubs. Breasts: Not examined, but on previous visits without masses. Abdomen: Term. Extremities: Clear without edema, cyanosis, or clubbing. Pelvic Exam: As stated, approximately 6 cm with vertex still at -1 station or slightly higher. Assessment And Plan: Anticipate delivery relatively soon. YAZMIN/EVAN Voice ID: [id number]
[2022-06-22] MEDS: IBUPROFEN 600 MG TAB PO PRN ×2 (10:37→17:56)
--- NOTE | 2022-06-22 14:42 | PN ---
The patient has her epidurals, quite comfortable. She can move her legs. Baby looks great. She is now 7 cm. She has experienced spontaneous rupture of membranes, clear fluid. Baby is about -1 stati on. I think as soon as she gets good and firm contractions we will have a baby relatively soon. YAZMIN/EVAN Voice ID: [id number] Report ID: [id number]
--- NOTE | 2022-06-22 18:18 | OP ---
Surgeon: Gianluca Smith MD Procedure In Detail: A 31-year-old, 6, para 5, 38 weeks and 3 days, came in active labor, 5 cm on admission, opal every 2-4 minutes. Rh positive, immune to Rubella. Negative strep. CO VID status pending. Requested and received epidural anesthesia, which gave excellent effect. Second stage of about 10 minutes or less. Spontaneous vaginal delivery of a 7-pound estimated weight, fema le, Apgars 9 and 10. No episiotomy. No laceration. Schultze delivery of the placenta. Uterus cont racted down well with IV drip Pitocin and massage. Estimated blood loss 250 cc or less. The patient tolerated all procedures well. Final Diagnoses: Term intrauterine at 38 weeks and 3 days, spontaneous labor, epidural ane sthesia, vaginal delivery. YAZMIN/EVAN Voice ID: [id number] Report ID: [id number]
[2022-06-23 03:39] LABS: RPR (Rapid Plasma Reagin) NON-REACT (NON-REACT)
--- NOTE | 2022-06-23 08:39 | DS ---
Hospital Course: A 31-year-old, 6, para 5, at 38 weeks and 3 days, came in active labor. Morin bsequently, delivered a 6-pound 7-ounce female, 9 and 10. No episiotomy. No lacerations. Epi dural anesthesia. Schultze delivery of the placenta, which was inspected and noted to be intact and normal. Less than 250 cc blood loss at the time of delivery. ; afebrile, ambulating, void ing. Lochia is normal. She will get her Tdap shot before she is dismissed. She has no post epidura l problems. She will return to my office somewhere between 4 and 6 weeks, but sooner if any problems . She is Rh positive, immune to Rubella. Negative strep. Final Diagnoses: Term intrauterine at 38 weeks and 3 days, spontaneous labor, spontaneous vaginal delivery, epidural anesthesia, Tdap to be administered prior to dismissal. YAZMIN/EVAN Voice ID: [id number] Report ID: [id number]
[2022-06-23 13:12] VITALS: BP 108/74; TEMP 98.2
== END 2022-06-23 11:15 | disposition home or self-care (01) | DRG 807 ==
LOC: L&D 03:37 → 2ND-WC 03:56
PROVIDERS: ADMIT Specialist; ATTEND Specialist
PROC: 10E0XZZ Delivery of Products of Conception, External Approach (ICD-10-PCS; principal; 2022-06-22)
PROC: 10907ZC Drainage of Amniotic Fluid, Therapeutic from Products of Conception, Via Natural or Artificial Opening (ICD-10-PCS; 2022-06-22)
DX: O80 Encounter for full-term uncomplicated delivery (principal); Z37.0 Single live birth; Z3A.38 38 weeks gestation of pregnancy; Z20.822 Contact with and (suspected) exposure to COVID-19
CPT/HCPCS: 36415; 81001; 85025; 86592; 86850; 86900; 86901; 87086; 87088; J2210; J2590; J2795; J3010; J7120; U0003